=== PATIENT | male | born 1965 | race Caucasian/White ===

== ENCOUNTER 2021-11-06 07:42 | Emergency (ER) | payer BC | END 2021-11-06 09:15 | disposition home or self-care (01) | LOC: VM.ED 07:42 | DX: R07.81 Pleurodynia (principal) | CPT/HCPCS: 71101-RT; 96372; 99283; J3360 ==

== ENCOUNTER 2024-03-14 10:51 | Day surgery (SDC) | payer BC ==
[2024-03-14] MEDS ORDERED: Propofol 200 MG/20 ML SDV ONE ×3 (11:02→12:21)
[2024-03-14] MEDS ORDERED: fentaNYL 100 MCG/2 ML SDV ONE (11:02)
[2024-03-14] MEDS: Lactated Ringers 1,000 ML IV SCH (11:14)
== END 2024-03-14 13:40 | disposition home or self-care (01) ==
LOC: VM.SDS 10:51
PROVIDERS: ATTEND Surgery
DX: Z12.11 Encounter for screening for malignant neoplasm of colon (principal); R03.0 Elevated blood-pressure reading, without diagnosis of hypertension; E66.01 Morbid (severe) obesity due to excess calories; J01.90 Acute sinusitis, unspecified; F17.210 Nicotine dependence, cigarettes, uncomplicated; Z68.39 Body mass index [BMI] 39.0-39.9, adult; Z79.2 Long term (current) use of antibiotics
CPT/HCPCS: 45378; J2704; J3010; J7120